=== PATIENT | female | born 1965 | race African-American/Black ===

== ENCOUNTER 2018-08-28 16:17 | Inpatient (IN) | payer MEDICAID, MEDICARE ==
[~2018-08-28] VITALS: Ht 160 cm; Wt 62.9 kg
[~2018-08-28 16:17] MED LIST: GABA-290 PO; INSULIN 70/30 SQ; LISI10TA5 PO; POLY10DR3 EACHEYE; SULF15DR26 EACHEYE; [UNRECOGNIZED DRUG - OTHER] PO
[2018-08-28] MEDS ORDERED: KETOROLAC 30MG/ML VIAL IV STA (17:53)
[2018-08-28] MEDS ORDERED: MORPHINE SULFATE 4 MG/ML CPJ (NOT FOR IM USE) IV STA (17:53)
[2018-08-28] MEDS ORDERED: SODIUM CHLORIDE 0.9% 1,000 ML IV ONE (17:53)
[2018-08-28] MEDS ORDERED: ONDANSETRON HCL 4MG/2ML INJ IV STA (17:53)
[2018-08-28] MEDS ORDERED: FAMOTIDINE 20MG/2ML VIAL IV ONE (18:00)
[2018-08-28 19:29] LABS: BASOPHILS % 0.6 % (0.0-2.0); EOSINOPHILS % 0.2 % (0.0-5.0); HEMOGLOBIN. 12.3 g/dL (12.0-16.0); LYMPHOCYTES % 29.7 % (20.0-50.0); MEAN CORPUSCULAR HEMOGLOBIN 26.5 pg (28.0-32.0); MEAN CORPUSCULAR VOLUME 79.8 fL (81.0-99.0); MEAN PLATELET VOLUME 8.8 fl (7.4-10.4); MONOCYTES % 3.9 % (2.0-8.0); NEUTROPHILS % 65.6 % (40.0-76.0); PLATELET 289 x1000/uL (130-400); RED BLOOD CELL COUNT 4.64 mill/uL (4.2-5.4); RED CELL DISTRIBUTION WIDTH 14.3 % (11.6-14.6)
[2018-08-28] MEDS ORDERED: LORAZEPAM 2MG/ML CPJ IV ONE (19:30)
[2018-08-28] MEDS ORDERED: MORPHINE SULFATE 4 MG/ML CPJ (NOT FOR IM USE) IV ONE (19:30)
[2018-08-28] MEDS ORDERED: ONDANSETRON HCL 4MG/2ML INJ IV ONE (19:30)
[2018-08-28 19:35] LABS: CHLORIDE 102 mEq/L (98-107); INR 1.1; PROTHROMBIN TIME 10.6 sec (9.1-11.1)
[2018-08-28 19:39] LABS: ETHANOL BLOOD < 10 mg/dL
[2018-08-28 19:44] LABS: CREATINE KINASE 72 IU/L (26-192)
[2018-08-28 19:45] LABS: HCG SCREEN NEGATIVE
[2018-08-28 19:46] LABS: CREATINE KINASE MB FRACTION < 1.0 ng/mL (0.5-3.6)
[2018-08-28] MEDS ORDERED: INSULIN REGULAR (HUMULIN R) 300UNITS/3ML SUBCUT ONE (20:45)
[2018-08-28] MEDS ORDERED: HYDRALAZINE 20MG/ML VIAL IV ONE (21:15)
[2018-08-29 00:10] LABS: CLARITY URINE CLOUDY (CLEAR); COLOR URINE YELLOW (YELLOW); KETONES URINE 2+ (NEGATIVE); LEUKOCYTE ESTERASE URINE NEGATIVE (NEGATIVE); NITRITE URINE NEGATIVE (NEGATIVE); OCCULT BLOOD URINE 1+ (NEGATIVE); PH URINE 8.5 (4.5-8.0); PROTEIN URINE 2+ (NEGATIVE); SPECIFIC GRAVITY URINE 1.017 (1.005-1.030); UROBILINOGEN URINE 0.2 E.U./dL (0.2-1.0)
[2018-08-29 00:29] LABS: *AMPHETAMINES SCREEN URINE NEGATIVE (NEGATIVE); *BARBITURATES SCREEN URINE NEGATIVE (NEGATIVE); *BENZODIAZEPINES SCREEN URINE NEGATIVE (NEGATIVE); *COCAINE SCREEN URINE NEGATIVE (NEGATIVE); METHADONE URINE SCREEN NEGATIVE (NEGATIVE); OPIATES URINE SCREEN PRESUMTIVE POSITIVE (NEGATIVE)
[2018-08-29 00:30] LABS: CANNABINOID URINE SCREEN PRESUMTIVE POSITIVE (NEGATIVE); PHENCYCLIDINE URINE SCREEN NEGATIVE (NEGATIVE)
[2018-08-29] MEDS ORDERED: HYDRALAZINE 20MG/ML VIAL IV ONE (00:30)
[2018-08-29] MEDS ORDERED: INSULIN REGULAR (HUMULIN R) 300UNITS/3ML SUBCUT SCH (02:15)
[2018-08-29] MEDS ORDERED: NA PHOS,M-B/NA PHOS,DI-BA ENEMA 118ML PR PRN (11:00)
[2018-08-29] MEDS ORDERED: ONDANSETRON HCL 4MG/2ML INJ IV PRN (11:00)
[2018-08-29] MEDS ORDERED: ACETAMINOPHEN 650MG SUPP PR PRN (11:00)
[2018-08-29] MEDS ORDERED: ACETAMINOPHEN 325MG TABLET PO PRN (11:00)
[2018-08-29] MEDS ORDERED: GUAIFENESIN 200MG/10ML SUGAR FREE UDC PO PRN (11:00)
[2018-08-29] MEDS ORDERED: SODIUM CHLORIDE 0.45% 1,000 ML IV SCH (11:00)
[2018-08-29] MEDS ORDERED: LORAZEPAM 0.5MG TABLET PO PRN (11:00)
[2018-08-29] MEDS ORDERED: IPRATROPIUM/ALBUTEROL 0.5-3(2.5)MG/3ML NEB INH PRN (11:00)
[2018-08-29] MEDS ORDERED: MAGNESIUM/ALUMINUM HYDROXIDE/SIMETHICONE 30ML UDC PO PRN (11:00)
[2018-08-29] MEDS ORDERED: DEXTROSE 50% WATER 50ML SYRINGE IV PRN (11:00)
[2018-08-29] MEDS ORDERED: DOCUSATE SODIUM 100MG CAPSULE PO PRN (11:00)
[2018-08-29] MEDS ORDERED: DIPHENHYDRAMINE 50MG/ML VIAL IV PRN (11:00)
[2018-08-29 11:03] VITALS: BP 169/91
[2018-08-29] MEDS ORDERED: LEVOFLOXACIN 500MG PREMIX 100 ML IV SCH (12:00)
[2018-08-29] MEDS: BLOOD SUGAR DIAGNOSTIC STRIP TEST SCH ×3 (12:20→21:53)
[2018-08-29] MEDS: PANTOPRAZOLE SODIUM 40 MG/VIAL IV SCH (14:07)
[2018-08-29] MEDS: ENOXAPARIN 40MG/0.4ML SYR SUBCUT SCH (14:09)
[2018-08-29] MEDS: HYDROCODONE/ACETAMINOPHEN 5/325MG TABLET PO PRN (14:10)
[2018-08-29] MEDS: INSULIN LISPRO 100 UNITS/ML SUBCUT SCH ×3 (14:18→21:00)
[2018-08-29 15:22] LABS: HEMATOCRIT 35.6 % (36.0-48.0); HEMOGLOBIN 11.8 g/dL (12.0-16.0); MEAN CORPUSCULAR HEMOGLOBIN 26.4 pg (28.0-32.0); MEAN CORPUSCULAR VOLUME 79.9 fL (81.0-99.0); PLATELET 261 x1000/uL (130-400); RED BLOOD CELL COUNT 4.45 mill/uL (4.2-5.4); RED CELL DISTRIBUTION WIDTH 13.7 % (11.6-14.6)
[2018-08-29 15:32] LABS: CHLORIDE 106 mEq/L (98-107)
[2018-08-29] MEDS: SODIUM CHLORIDE 0.45% 1,000 ML IV SCH (16:45)
[2018-08-29] MEDS: CLONIDINE 0.1MG TABLET PO PRN (17:42)
[2018-08-29 20:22] VITALS: BP 188/97
[2018-08-30] VITALS (7 sets, daily range): BP systolic 129–198; BP diastolic 63–103
[2018-08-30] MEDS: BLOOD SUGAR DIAGNOSTIC STRIP TEST SCH ×4 (06:44→20:18)
[2018-08-30 06:58] LABS: CHLORIDE 101 mEq/L (98-107)
[2018-08-30 07:07] LABS: BASOPHILS % 0.5 % (0.0-2.0); HEMOGLOBIN. 10.4 g/dL (12.0-16.0); LYMPHOCYTES % 28.5 % (20.0-50.0); MEAN CORPUSCULAR HEMOGLOBIN 26.2 pg (28.0-32.0); MEAN CORPUSCULAR VOLUME 80.5 fL (81.0-99.0); MEAN PLATELET VOLUME 8.7 fl (7.4-10.4); MONOCYTES % 7.6 % (2.0-8.0); NEUTROPHILS % 63.4 % (40.0-76.0); PLATELET 257 x1000/uL (130-400); RED BLOOD CELL COUNT 3.97 mill/uL (4.2-5.4); RED CELL DISTRIBUTION WIDTH 14.1 % (11.6-14.6)
[2018-08-30 07:20] LABS: LDL CHOLESTEROL 158 mg/dL (5-100)
[2018-08-30 07:21] LABS: T4 FREE 1.25 ng/dL (0.76-1.46)
[2018-08-30 07:22] LABS: HDL CHOLESTEROL 47 mg/dL (40-59)
[2018-08-30] MEDS ORDERED: AMLODIPINE 5MG TABLET PO SCH (09:00)
[2018-08-30] MEDS: ENOXAPARIN 40MG/0.4ML SYR SUBCUT SCH (09:52)
[2018-08-30] MEDS ORDERED: INFLUENZA VIRUS VACCINE(AFLURIA) 0.5ML SYR IM ONE (10:00)
[2018-08-30] MEDS: HYDROCODONE/ACETAMINOPHEN 5/325MG TABLET PO PRN ×2 (10:00→20:07)
[2018-08-30] MEDS: INSULIN LISPRO 100 UNITS/ML SUBCUT SCH ×4 (10:07→20:18)
[2018-08-30] MEDS: SODIUM CHLORIDE 0.45% 1,000 ML IV SCH (10:08)
[2018-08-30] MEDS: PANTOPRAZOLE SODIUM 40 MG/VIAL IV SCH (10:47)
[2018-08-30] MEDS ORDERED: MORPHINE SULFATE 4 MG/ML CPJ (NOT FOR IM USE) IV SCH (12:15)
[2018-08-30] MEDS: CLONIDINE 0.1MG TABLET PO PRN ×2 (12:31→20:07)
[2018-08-30] MEDS ORDERED: HYDRALAZINE 20MG/ML VIAL IV NR (16:30)
== END 2018-08-30 23:10 | disposition home or self-care (01) ==
LOC: ER 16:33 → 6WST 21:32 → EDBEDREQTM 21:35 → EDBEDREQ 21:35 → ENRESERV 08-29 08:10
PROVIDERS: ADMIT Internal Medicine; ATTEND Internal Medicine
DX: K80.20 Calculus of gallbladder without cholecystitis without obstruction (principal); E87.2 Acidosis; E11.65 Type 2 diabetes mellitus with hyperglycemia; E86.0 Dehydration; I10 Essential (primary) hypertension; F17.210 Nicotine dependence, cigarettes, uncomplicated; K44.9 Diaphragmatic hernia without obstruction or gangrene; I25.10 Atherosclerotic heart disease of native coronary artery without angina pectoris; Z88.0 Allergy status to penicillin; Z91.19 Patient's noncompliance with other medical treatment and regimen; Z98.891 History of uterine scar from previous surgery; Z89.432 Acquired absence of left foot
CPT/HCPCS: 36415; 71045; 74176; 76700; 80061; 80305; 80320; 82550; 82553; 82962; 83036; 83605; 83880; 84439; 84443; 84484; 84703; 85027; 93005; 93306; 93970; 96374; 96375; 99285; C9113; J0360; J1650; J1815; J1885; J2060; J2270; J2405; J3490; J7030; G0480

== ENCOUNTER 2018-12-04 13:46 | Emergency (ER) | payer MEDICARE ==
[~2018-12-04] VITALS: Ht 165.1 cm; Wt 67.0 kg
[2018-12-04 14:29] VITALS: BP 163/83
[2018-12-04] MEDS ORDERED: CIPROFLOXACIN 0.3% OPHTH SOLN 2.5ML LEFTEYE STA (14:37)
== END 2018-12-04 15:55 | disposition left against medical advice (07) ==
LOC: ER 13:46
DX: H10.9 Unspecified conjunctivitis (principal); Z91.410 Personal history of adult physical and sexual abuse
CPT/HCPCS: 99283

== ENCOUNTER 2019-01-23 10:39 | Inpatient (IN) | payer MEDICARE ==
[~2019-01-23] VITALS: Ht 160 cm; Wt 70.8 kg
[2019-01-23] MEDS ORDERED: SODIUM CHLORIDE 0.9% 1,000 ML IV ONE (10:59)
[2019-01-23 12:14] LABS: BASOPHILS % 0.7 % (0.0-2.0); EOSINOPHILS % 0.8 % (0.0-5.0); HEMATOCRIT. 36.7 % (36.0-48.0); HEMOGLOBIN. 12.2 g/dL (12.0-16.0); MEAN CORPUSCULAR HEMOGLOBIN 26.6 pg (28.0-32.0); MEAN PLATELET VOLUME 8.4 fl (7.4-10.4); MONOCYTES % 6.7 % (2.0-8.0); NEUTROPHILS % 53.8 % (40.0-76.0); PLATELET 321 x1000/uL (130-400); RED BLOOD CELL COUNT 4.58 mill/uL (4.2-5.4); RED CELL DISTRIBUTION WIDTH 13.5 % (11.6-14.6)
[2019-01-23 12:31] LABS: CHLORIDE 108 mEq/L (98-107)
[2019-01-23 12:32] LABS: PARTIAL THROMBOPLASTIN TIME 26.9 sec (23.4-31.0); PROTHROMBIN TIME 9.9 sec (9.6-11.0)
[2019-01-23] MEDS ORDERED: ONDANSETRON HCL 4MG/2ML INJ IV STA (13:28)
[2019-01-23] MEDS ORDERED: MORPHINE SULFATE 4 MG/ML CPJ (NOT FOR IM USE) IV STA (13:28)
[2019-01-23] MEDS ORDERED: ASPIRIN 325MG EC TABLET PO ONE (13:30)
[2019-01-23] MEDS ORDERED: IOHEXOL-350 100 ML BOTTLE ONE (15:56)
[2019-01-23] MEDS ORDERED: HYDRALAZINE 20MG/ML VIAL IV NR (16:23)
[2019-01-23] MEDS ORDERED: IPRATROPIUM/ALBUTEROL 0.5-3(2.5)MG/3ML NEB INH PRN (17:15)
[2019-01-23] MEDS ORDERED: ONDANSETRON HCL 4MG/2ML INJ IV PRN (17:15)
[2019-01-23] MEDS ORDERED: LORAZEPAM 0.5MG TABLET PO PRN (17:15)
[2019-01-23] MEDS ORDERED: DIPHENHYDRAMINE 50MG/ML VIAL IV PRN (17:15)
[2019-01-23] MEDS ORDERED: DEXTROSE 50% WATER 50ML SYRINGE IV PRN (17:15)
[2019-01-23] MEDS ORDERED: ACETAMINOPHEN 650MG SUPP PR PRN (17:15)
[2019-01-23] MEDS ORDERED: NA PHOS,M-B/NA PHOS,DI-BA ENEMA 118ML PR PRN (17:15)
[2019-01-23] MEDS ORDERED: GUAIFENESIN 200MG/10ML SUGAR FREE UDC PO PRN (17:15)
[2019-01-23] MEDS ORDERED: ACETAMINOPHEN 325MG TABLET PO PRN (17:15)
[2019-01-23] MEDS ORDERED: HYDROCODONE/ACETAMINOPHEN 5/325MG TABLET PO PRN (17:15)
[2019-01-23] MEDS ORDERED: DOCUSATE SODIUM 100MG CAPSULE PO PRN (17:15)
[2019-01-23] MEDS ORDERED: MAGNESIUM/ALUMINUM HYDROXIDE/SIMETHICONE 30ML UDC PO PRN (17:15)
[2019-01-23] MEDS ORDERED: PIPERACILLIN/TAZOBACTAM 2.25 G in DEXTROSE 5% WATER 50 ML IV SCH (17:15)
[2019-01-23] MEDS ORDERED: GABA800T97 MT (18:07)
[2019-01-23] MEDS: INSULIN LISPRO 100 UNITS/ML SUBCUT SCH ×2 (18:15→21:00)
[2019-01-23 18:20] VITALS: BP 176/96
[2019-01-23] MEDS: AMLODIPINE 5MG TABLET PO SCH (18:42)
[2019-01-23] MEDS: ENOXAPARIN 40MG/0.4ML SYR SUBCUT SCH (18:43)
[2019-01-23] MEDS: MORPHINE SULFATE 2 MG/ML CPJ (NOT FOR IM USE) IV PRN (19:10)
[2019-01-23] MEDS ORDERED: LEVOFLOXACIN 500MG PREMIX 100 ML IV NR (19:30)
[2019-01-23 20:00] VITALS: BP 162/76
[2019-01-23] MEDS: SODIUM CHLORIDE 0.45% 1,000 ML IV SCH (20:16)
[2019-01-23] MEDS: CLONIDINE 0.1MG TABLET PO PRN (20:35)
[2019-01-23] MEDS: CIPROFLOXACIN 0.3% OPHTH SOLN 2.5ML LEFTEYE SCH (20:35)
[2019-01-23] MEDS ORDERED: ATORVASTATIN CALCIUM 10MG TABLET PO SCH (21:00)
[2019-01-23] MEDS: GABAPENTIN 100MG CAPSULE PO SCH (21:59)
[2019-01-23] MEDS: BLOOD SUGAR DIAGNOSTIC STRIP TEST SCH (21:59)
[2019-01-23] MEDS: METRONIDAZOLE 500 MG PREMIX 100 ML IV SCH (21:59)
[2019-01-23] MEDS: SULFACETAMIDE SODIUM 10% OPHTH DROPS 15ML LEFTEYE SCH (22:01)
[2019-01-23] MEDS ORDERED: METF-815 PO (22:47)
[2019-01-23] MEDS ORDERED: LISI-604 PO (22:48)
[2019-01-23] MEDS ORDERED: SIMV5TAB58 MT (22:49)
[2019-01-24] VITALS: BP 133/59
[2019-01-24] MEDS: MORPHINE SULFATE 2 MG/ML CPJ (NOT FOR IM USE) IV PRN ×4 (01:11→20:17)
[2019-01-24 04:00] VITALS: BP 141/73
[2019-01-24 04:00] LABS: CLARITY URINE CLEAR (CLEAR); COLOR URINE YELLOW (YELLOW); KETONES URINE TRACE (NEGATIVE); LEUKOCYTE ESTERASE URINE NEGATIVE (NEGATIVE); NITRITE URINE NEGATIVE (NEGATIVE); OCCULT BLOOD URINE NEGATIVE (NEGATIVE); PROTEIN URINE NEGATIVE (NEGATIVE); SPECIFIC GRAVITY URINE 1.036 (1.005-1.030); UROBILINOGEN URINE 0.2 E.U./dL (0.2-1.0)
[2019-01-24] MEDS: METRONIDAZOLE 500 MG PREMIX 100 ML IV SCH ×2 (04:11→15:37)
[2019-01-24 04:34] LABS: *AMPHETAMINES SCREEN URINE NEGATIVE (NEGATIVE); *BARBITURATES SCREEN URINE NEGATIVE (NEGATIVE); *BENZODIAZEPINES SCREEN URINE NEGATIVE (NEGATIVE); *COCAINE SCREEN URINE NEGATIVE (NEGATIVE)
[2019-01-24 04:35] LABS: CANNABINOID URINE SCREEN PRESUMTIVE POSITIVE (NEGATIVE); METHADONE URINE SCREEN NEGATIVE (NEGATIVE); OPIATES URINE SCREEN PRESUMTIVE POSITIVE (NEGATIVE); PHENCYCLIDINE URINE SCREEN NEGATIVE (NEGATIVE)
[2019-01-24] MEDS: GABAPENTIN 100MG CAPSULE PO SCH ×2 (06:08→15:38)
[2019-01-24] MEDS: BLOOD SUGAR DIAGNOSTIC STRIP TEST SCH ×3 (06:08→17:20)
[2019-01-24] MEDS: INSULIN LISPRO 100 UNITS/ML SUBCUT SCH ×3 (07:50→17:50)
[2019-01-24 08:00] VITALS: BP 146/77
[2019-01-24] MEDS: AMLODIPINE 5MG TABLET PO SCH (08:27)
[2019-01-24] MEDS: SULFACETAMIDE SODIUM 10% OPHTH DROPS 15ML LEFTEYE SCH ×4 (08:28→21:06)
[2019-01-24] MEDS: CIPROFLOXACIN 0.3% OPHTH SOLN 2.5ML LEFTEYE SCH ×4 (08:28→21:06)
[2019-01-24] MEDS ORDERED: ASPIRIN 81MG EC TABLET PO SCH (09:00)
[2019-01-24 09:30] LABS: BASOPHILS % 0.6 % (0.0-2.0); EOSINOPHILS % 1.1 % (0.0-5.0); HEMOGLOBIN. 10.3 g/dL (12.0-16.0); LYMPHOCYTES % 48.1 % (20.0-50.0); MEAN CORPUSCULAR HEMOGLOBIN 26.5 pg (28.0-32.0); MEAN CORPUSCULAR VOLUME 79.3 fL (81.0-99.0); MEAN PLATELET VOLUME 8.2 fl (7.4-10.4); MONOCYTES % 8.3 % (2.0-8.0); NEUTROPHILS % 41.9 % (40.0-76.0); PLATELET 256 x1000/uL (130-400); RED CELL DISTRIBUTION WIDTH 13.5 % (11.6-14.6)
[2019-01-24 09:41] LABS: CHLORIDE 106 mEq/L (98-107)
[2019-01-24 09:48] LABS: LDL CHOLESTEROL 176 mg/dL (5-100)
[2019-01-24 09:49] LABS: HDL CHOLESTEROL 41 mg/dL (40-59)
[2019-01-24 09:50] LABS: T4 FREE 1.34 ng/dL (0.76-1.46)
[2019-01-24] MEDS: SODIUM CHLORIDE 0.45% 1,000 ML IV SCH (14:15)
[2019-01-24] MEDS: CLONIDINE 0.1MG TABLET PO PRN (15:39)
[2019-01-24 16:00] VITALS: BP 170/99
[2019-01-24] MEDS: ENOXAPARIN 40MG/0.4ML SYR SUBCUT SCH (18:36)
[2019-01-24] MEDS ORDERED: LEVOFLOXACIN 250MG PREMIX 50 ML IV SCH (20:00)
[2019-01-24 20:21] VITALS: BP 142/89
[2019-01-24] MEDS ORDERED: ATORVASTATIN CALCIUM 40MG TABLET PO SCH ×2 (21:00)
== END 2019-01-24 21:37 | DRG 45 ==
LOC: ER 10:39 → SUPCPDRO 14:11 → 6WST 14:59 → EDBEDREQ 15:01 → EDBEDREQTM 15:01 → ENRESERV 15:20
PROVIDERS: ADMIT Internal Medicine; ATTEND Internal Medicine
PROC: 02HV33Z Insertion of Infusion Device into Superior Vena Cava, Percutaneous Approach (ICD-10-PCS; principal; 2019-01-23)
PROC: B5181ZA Fluoroscopy of Superior Vena Cava using Low Osmolar Contrast, Guidance (ICD-10-PCS; 2019-01-23)
PROC: B548ZZA Ultrasonography of Superior Vena Cava, Guidance (ICD-10-PCS; 2019-01-23)
DX: I63.9 Cerebral infarction, unspecified (principal); K85.90 Acute pancreatitis without necrosis or infection, unspecified; D68.59 Other primary thrombophilia; E11.22 Type 2 diabetes mellitus with diabetic chronic kidney disease; E11.51 Type 2 diabetes mellitus with diabetic peripheral angiopathy without gangrene; E11.40 Type 2 diabetes mellitus with diabetic neuropathy, unspecified; E11.65 Type 2 diabetes mellitus with hyperglycemia; G81.94 Hemiplegia, unspecified affecting left nondominant side; K86.1 Other chronic pancreatitis; E78.5 Hyperlipidemia, unspecified; F17.210 Nicotine dependence, cigarettes, uncomplicated; N18.9 Chronic kidney disease, unspecified; I12.9 Hypertensive chronic kidney disease with stage 1 through stage 4 chronic kidney disease, or unspecified chronic kidney disease; E86.0 Dehydration; H10.9 Unspecified conjunctivitis; F12.90 Cannabis use, unspecified, uncomplicated; G31.9 Degenerative disease of nervous system, unspecified; Z88.0 Allergy status to penicillin; Z98.891 History of uterine scar from previous surgery; Z79.4 Long term (current) use of insulin; Z79.899 Other long term (current) drug therapy; Z89.422 Acquired absence of other left toe(s)
CPT/HCPCS: 36415; 70496; 70498; 70551; 71045; 76700; 76937; 80061; 80305; 82962; 83036; 83880; 84439; 84443; 84484; 92610; 93005; 93306; 93970; 96365; 96375; 97162; 97166; 99285; C1725; J0360; J1650; J1956; J2270; J2405; J3490; J7030; Q9967

== ENCOUNTER 2019-02-12 14:52 | Emergency (ER) | payer MEDICARE ==
[~2019-02-12] VITALS: Ht 162.6 cm; Wt 66.0 kg
[~2019-02-12 14:52] MED LIST changes: +GABA800T97 MT; +LISI-604 PO; +METF-815 PO; +SIMV5TAB58 MT
[2019-02-12 18:22] LABS: BASOPHILS % 0.6 % (0.0-2.0); EOSINOPHILS % 0.8 % (0.0-5.0); HEMATOCRIT. 36.1 % (36.0-48.0); LYMPHOCYTES % 44.5 % (20.0-50.0); MEAN CORPUSCULAR HEMOGLOBIN 26.3 pg (28.0-32.0); MEAN CORPUSCULAR VOLUME 79.3 fL (81.0-99.0); MEAN PLATELET VOLUME 8.4 fl (7.4-10.4); MONOCYTES % 7.3 % (2.0-8.0); NEUTROPHILS % 46.8 % (40.0-76.0); PLATELET 267 x1000/uL (130-400); RED BLOOD CELL COUNT 4.55 mill/uL (4.2-5.4); RED CELL DISTRIBUTION WIDTH 13.5 % (11.6-14.6)
[2019-02-12 18:26] LABS: CHLORIDE 107 mEq/L (98-107)
[2019-02-12 18:27] LABS: PROTHROMBIN TIME 10.4 sec (9.6-11.0)
[2019-02-12] MEDS ORDERED: KETOROLAC 15MG/ML VIAL IV ONE (18:30)
[2019-02-12] MEDS ORDERED: ASPIRIN 81MG TABLET PO ONE (19:00)
[2019-02-12] MEDS ORDERED: FUROSEMIDE 20MG/2ML VIAL IVP ONE (19:00)
[2019-02-12] MEDS ORDERED: NITROGLYCERIN 0.4MG TABLET SL SL ONE (19:00)
[2019-02-12] MEDS ORDERED: INSULIN REGULAR (HUMULIN R) 300UNITS/3ML IV ONE (19:30)
[2019-02-12] MEDS ORDERED: DEXTROSE 50% WATER 50ML SYRINGE IV ONE (19:30)
[2019-02-12] MEDS ORDERED: GABAPENTIN 400MG CAPSULE PO ONE (21:45)
[2019-02-12 21:56] VITALS: BP 127/76
== END 2019-02-12 22:07 | disposition short-term general hospital (02) ==
LOC: ER 14:55 → CANBEDREQ 23:16
DX: R07.89 Other chest pain (principal); N17.9 Acute kidney failure, unspecified; R00.0 Tachycardia, unspecified; I10 Essential (primary) hypertension; E11.9 Type 2 diabetes mellitus without complications; Z79.4 Long term (current) use of insulin; F17.210 Nicotine dependence, cigarettes, uncomplicated; Z88.0 Allergy status to penicillin; Z79.899 Other long term (current) drug therapy
CPT/HCPCS: 36415; 71045; 80053; 82962; 83880; 84484; 85025; 85610; 93005; 96374; 96375; 99285; J1815; J1885; J1940; Z7610

== ENCOUNTER 2019-03-18 18:49 | Emergency (ER) | payer MEDICARE ==
[~2019-03-18] VITALS: Ht 167.6 cm; Wt 62.0 kg
[2019-03-18] MEDS ORDERED: ONDANSETRON HCL 4MG/2ML INJ IV STA (19:47)
[2019-03-18] MEDS ORDERED: SODIUM CHLORIDE 0.9% 1000ML BAG (SEPSIS BOLUS) IV ONE (20:00)
[2019-03-18 20:12] LABS: BG BASE EXCESS -6.8 mmol/L (-2.0-2.0); BG CARBOXYHEMOGLOBIN 0.3 % (0.5-1.5); BG DEOXYHEMOGLOBIN 4.2 % (0.0-5.0); BG FRACTION INSPIRED OXYGEN 21; BG HCO3 ACT 17.9 mmol/L (22.0-26.0); BG METHEMOGLOBIN 0.5 % (0.0-1.5); BG OXYGEN SATURATION 95.8 % (92.0-98.5); BG PH 7.353 (7.350-7.450); BG PO2 88.5 mmHg (75.0-100.0); BG SAMPLE SITE RIGHT BRACHIAL; BG TOTAL HEMOGLOBIN 10.1 g/dL (12.0-18.0); BG VENT MODE ROOM AIR
[2019-03-18 20:54] LABS: CLARITY URINE CLEAR (CLEAR); COLOR URINE YELLOW (YELLOW); KETONES URINE NEGATIVE (NEGATIVE); LEUKOCYTE ESTERASE URINE NEGATIVE (NEGATIVE); NITRITE URINE NEGATIVE (NEGATIVE); OCCULT BLOOD URINE NEGATIVE (NEGATIVE); PROTEIN URINE NEGATIVE (NEGATIVE); SPECIFIC GRAVITY URINE 1.012 (1.005-1.030)
[2019-03-18 21:09] LABS: BASOPHILS % 0.5 % (0.0-2.0); CHLORIDE 110 mEq/L (98-107); HEMATOCRIT. 28.9 % (36.0-48.0); HEMOGLOBIN. 9.5 g/dL (12.0-16.0); LYMPHOCYTES % 30.9 % (20.0-50.0); MEAN CORPUSCULAR HEMOGLOBIN 26.1 pg (28.0-32.0); MEAN CORPUSCULAR VOLUME 79.6 fL (81.0-99.0); MEAN PLATELET VOLUME 8.2 fl (7.4-10.4); MONOCYTES % 8.9 % (2.0-8.0); NEUTROPHILS % 58.7 % (40.0-76.0); PLATELET 271 x1000/uL (130-400); PROTHROMBIN TIME 10.7 sec (9.6-11.0); RED BLOOD CELL COUNT 3.63 mill/uL (4.2-5.4); RED CELL DISTRIBUTION WIDTH 13.4 % (11.6-14.6)
[2019-03-18 21:13] LABS: ETHANOL BLOOD < 10 mg/dL
[2019-03-18 21:15] LABS: *AMPHETAMINES SCREEN URINE NEGATIVE (NEGATIVE); *BARBITURATES SCREEN URINE NEGATIVE (NEGATIVE); *BENZODIAZEPINES SCREEN URINE NEGATIVE (NEGATIVE); *COCAINE SCREEN URINE NEGATIVE (NEGATIVE); METHADONE URINE SCREEN NEGATIVE (NEGATIVE); OPIATES URINE SCREEN NEGATIVE (NEGATIVE)
[2019-03-18 21:16] LABS: CANNABINOID URINE SCREEN PRESUMTIVE POSITIVE (NEGATIVE); PHENCYCLIDINE URINE SCREEN NEGATIVE (NEGATIVE)
[2019-03-18] MEDS ORDERED: SODIUM POLYSTYRENE SULFONATE 15 G/60 ML BOT PO ONE (21:45)
[2019-03-19] MEDS ORDERED: ONDANSETRON HCL 4MG/2ML INJ IV ONE (02:15)
[2019-03-19] MEDS ORDERED: MORPHINE SULFATE 4 MG/ML CPJ (NOT FOR IM USE) IV ONE (02:15)
[2019-03-19 02:22] VITALS: BP 132/76
== END 2019-03-19 02:22 | disposition short-term general hospital (02) ==
LOC: ER 18:49 → EDBEDREQTM 22:54 → EDBEDREQ 22:54 → EDBEDREQSVC 22:54 → ER 03-19 02:22 → CANBEDREQ 03-19 05:36
DX: N17.9 Acute kidney failure, unspecified (principal); E86.0 Dehydration; E11.65 Type 2 diabetes mellitus with hyperglycemia; I10 Essential (primary) hypertension; F11.10 Opioid abuse, uncomplicated; Z89.422 Acquired absence of other left toe(s); Z79.4 Long term (current) use of insulin; Z86.73 Personal history of transient ischemic attack (TIA), and cerebral infarction without residual deficits; Z79.899 Other long term (current) drug therapy
CPT/HCPCS: 36415; 36600; 70450; 71045; 80053; 80305; 80320; 81003; 82375; 82805; 82962; 83605; 83690; 84145; 84484; 85025; 85610; 87040; 87086; 93005; 96361; 96374; 96375; 96376; 99284; J2270; J2405; J7030; G0480

== ENCOUNTER 2019-04-25 13:03 | Emergency (ER) | payer MEDICARE ==
[~2019-04-25] VITALS: Ht 167.6 cm; Wt 61.0 kg
[2019-04-25 16:00] VITALS: BP 155/90
== END 2019-04-25 16:15 | disposition left against medical advice (07) ==
LOC: ER 13:03
DX: R53.1 Weakness (principal); I10 Essential (primary) hypertension; E11.9 Type 2 diabetes mellitus without complications; F17.200 Nicotine dependence, unspecified, uncomplicated; Z86.73 Personal history of transient ischemic attack (TIA), and cerebral infarction without residual deficits; Z79.4 Long term (current) use of insulin; Z79.899 Other long term (current) drug therapy; Z98.890 Other specified postprocedural states; Z88.0 Allergy status to penicillin
CPT/HCPCS: 99283

== ENCOUNTER 2019-06-02 17:02 | Inpatient (IN) | payer MEDICAID, MEDICARE ==
[~2019-06-02] VITALS: Ht 160 cm; Wt 67.1 kg
[2019-06-02] MEDS ORDERED: ONDANSETRON HCL 4MG/2ML INJ IV ONE ×2 (19:00→20:45)
[2019-06-02] MEDS ORDERED: MORPHINE SULFATE 4 MG/ML CPJ (NOT FOR IM USE) IV ONE ×2 (19:00→22:15)
[2019-06-02 19:30] LABS: PROTHROMBIN TIME 10.5 sec (9.6-11.0)
[2019-06-02 19:32] LABS: CHLORIDE 107 mEq/L (98-107)
[2019-06-02 19:33] LABS: BASOPHILS % 0.6 % (0.0-2.0); EOSINOPHILS % 0.5 % (0.0-5.0); HEMATOCRIT. 34.3 % (36.0-48.0); HEMOGLOBIN. 11.3 g/dL (12.0-16.0); MEAN CORPUSCULAR HEMOGLOBIN 26.2 pg (28.0-32.0); MEAN CORPUSCULAR VOLUME 79.6 fL (81.0-99.0); MEAN PLATELET VOLUME 8.7 fl (7.4-10.4); MONOCYTES % 4.6 % (2.0-8.0); NEUTROPHILS % 68.3 % (40.0-76.0); PLATELET 305 x1000/uL (130-400); RED BLOOD CELL COUNT 4.31 mill/uL (4.2-5.4); RED CELL DISTRIBUTION WIDTH 13.9 % (11.6-14.6)
[2019-06-02] MEDS ORDERED: SODIUM CHLORIDE 0.9% 1,000 ML IV ONE ×2 (20:30→21:45)
[2019-06-02] MEDS ORDERED: METOCLOPRAMIDE HCL 10MG/2ML VIAL IV ONE (20:45)
[2019-06-02] MEDS ORDERED: HYDRALAZINE 20MG/ML VIAL IV ONE (21:45)
[2019-06-02 23:10] LABS: CLARITY URINE CLEAR (CLEAR); COLOR URINE YELLOW (YELLOW); KETONES URINE NEGATIVE (NEGATIVE); LEUKOCYTE ESTERASE URINE NEGATIVE (NEGATIVE); NITRITE URINE NEGATIVE (NEGATIVE); OCCULT BLOOD URINE 1+ (NEGATIVE); PH URINE 7.5 (4.5-8.0); PROTEIN URINE 3+ (NEGATIVE); SPECIFIC GRAVITY URINE 1.027 (1.005-1.030)
[2019-06-02] MEDS ORDERED: HYDR-459 MT (23:24)
[2019-06-03] VITALS (8 sets, daily range): BP systolic 149–203; BP diastolic 77–99
[2019-06-03] MEDS ORDERED: DEXTROSE 50% WATER 50ML SYRINGE IV PRN (03:15)
[2019-06-03] MEDS ORDERED: DEXT 5%/0.9% NACL KCL 20MEQ/L 1,000 ML IV SCH (05:00)
[2019-06-03] MEDS: ONDANSETRON HCL 4MG/2ML INJ IV PRN ×3 (06:48→19:56)
[2019-06-03] MEDS: LISINOPRIL 40MG TABLET PO SCH ×2 (06:49→08:47)
[2019-06-03] MEDS: BLOOD SUGAR DIAGNOSTIC STRIP TEST SCH ×5 (07:02→21:19)
[2019-06-03] MEDS: INSULIN LISPRO 100 UNITS/ML SUBCUT SCH ×4 (07:11→21:20)
[2019-06-03] MEDS: FAMOTIDINE 20MG TABLET PO SCH ×2 (08:47→21:19)
[2019-06-03] MEDS: ENOXAPARIN 40MG/0.4ML SYR SUBCUT SCH (08:47)
[2019-06-03] MEDS: INS NPH/REG HM 70-30 100 UNITS/ML 10ML VIAL (HUMULIN 70-30) SUBCUT SCH (08:49)
[2019-06-03] MEDS: DEXT 5%/0.45% NACL KCL 20MEQ/L 1,000 ML IV SCH ×3 (09:57→22:36)
[2019-06-03 12:07] LABS: PHENCYCLIDINE URINE SCREEN NEGATIVE (NEGATIVE)
[2019-06-03 12:08] LABS: CANNABINOID URINE SCREEN PRESUMTIVE POSITIVE (NEGATIVE); OPIATES URINE SCREEN PRESUMTIVE POSITIVE (NEGATIVE)
[2019-06-03 12:10] LABS: *AMPHETAMINES SCREEN URINE NEGATIVE (NEGATIVE)
[2019-06-03 12:11] LABS: *COCAINE SCREEN URINE NEGATIVE (NEGATIVE); METHADONE URINE SCREEN NEGATIVE (NEGATIVE)
[2019-06-03 12:14] LABS: *BARBITURATES SCREEN URINE NEGATIVE (NEGATIVE); *BENZODIAZEPINES SCREEN URINE NEGATIVE (NEGATIVE)
[2019-06-03] MEDS: MORPHINE SULFATE 2 MG/ML CPJ (NOT FOR IM USE) IV PRN ×3 (12:58→23:39)
[2019-06-03] MEDS: PROMETHAZINE/DEXTROMETHORPHAN 6.25-15MG/5ML BOTTLE 120ML PO PRN ×2 (15:05→22:31)
[2019-06-03 16:26] LABS: BASOPHILS % 0.4 % (0.0-2.0); HEMATOCRIT. 28.9 % (36.0-48.0); HEMOGLOBIN. 9.4 g/dL (12.0-16.0); LYMPHOCYTES % 13.9 % (20.0-50.0); MEAN CORPUSCULAR HEMOGLOBIN 26.2 pg (28.0-32.0); MEAN CORPUSCULAR VOLUME 80.1 fL (81.0-99.0); NEUTROPHILS % 79.7 % (40.0-76.0); PLATELET 257 x1000/uL (130-400); RED CELL DISTRIBUTION WIDTH 14.1 % (11.6-14.6)
[2019-06-04] VITALS (9 sets, daily range): BP systolic 146–201; BP diastolic 73–99
[2019-06-04] MEDS: DEXT 5%/0.45% NACL KCL 20MEQ/L 1,000 ML IV SCH ×4 (01:45→21:14)
[2019-06-04] MEDS: ONDANSETRON HCL 4MG/2ML INJ IV PRN (04:13)
[2019-06-04] MEDS: MORPHINE SULFATE 2 MG/ML CPJ (NOT FOR IM USE) IV PRN ×3 (04:13→22:52)
[2019-06-04] MEDS: PROMETHAZINE/DEXTROMETHORPHAN 6.25-15MG/5ML BOTTLE 120ML PO PRN ×2 (06:09→20:30)
[2019-06-04] MEDS: INSULIN LISPRO 100 UNITS/ML SUBCUT SCH ×4 (06:18→21:00)
[2019-06-04 07:19] LABS: CHLORIDE 107 mEq/L (98-107)
[2019-06-04 07:26] LABS: PHOSPHORUS 2.6 mg/dL (2.5-4.9)
[2019-06-04] MEDS: BLOOD SUGAR DIAGNOSTIC STRIP TEST SCH ×4 (07:30→21:14)
[2019-06-04] MEDS: FAMOTIDINE 20MG TABLET PO SCH ×2 (08:41→21:11)
[2019-06-04] MEDS: LISINOPRIL 40MG TABLET PO SCH (08:41)
[2019-06-04] MEDS: ENOXAPARIN 40MG/0.4ML SYR SUBCUT SCH (08:42)
[2019-06-04] MEDS: INS NPH/REG HM 70-30 100 UNITS/ML 10ML VIAL (HUMULIN 70-30) SUBCUT SCH (09:00)
[2019-06-04 11:56] LABS: BASOPHILS % 0.2 % (0.0-2.0); HEMATOCRIT. 30.3 % (36.0-48.0); HEMOGLOBIN. 10.1 g/dL (12.0-16.0); LYMPHOCYTES % 15.9 % (20.0-50.0); MEAN CORPUSCULAR HEMOGLOBIN 26.5 pg (28.0-32.0); MEAN CORPUSCULAR VOLUME 79.3 fL (81.0-99.0); MEAN PLATELET VOLUME 8.5 fl (7.4-10.4); MONOCYTES % 4.5 % (2.0-8.0); NEUTROPHILS % 79.4 % (40.0-76.0); PLATELET 260 x1000/uL (130-400); RED BLOOD CELL COUNT 3.82 mill/uL (4.2-5.4); RED CELL DISTRIBUTION WIDTH 14.1 % (11.6-14.6)
[2019-06-04] MEDS ORDERED: MAGNESIUM 4 G PREMIX 100 ML IV NR (14:00)
[2019-06-04 14:58] LABS: BASOPHILS % 0.5 % (0.0-2.0); EOSINOPHILS % 0.2 % (0.0-5.0); HEMATOCRIT. 31.2 % (36.0-48.0); HEMOGLOBIN. 10.3 g/dL (12.0-16.0); LYMPHOCYTES % 22.6 % (20.0-50.0); MEAN CORPUSCULAR HEMOGLOBIN 26.3 pg (28.0-32.0); MEAN CORPUSCULAR VOLUME 79.8 fL (81.0-99.0); MEAN PLATELET VOLUME 8.5 fl (7.4-10.4); MONOCYTES % 5.4 % (2.0-8.0); NEUTROPHILS % 71.3 % (40.0-76.0); PLATELET 248 x1000/uL (130-400); RED BLOOD CELL COUNT 3.91 mill/uL (4.2-5.4); RED CELL DISTRIBUTION WIDTH 13.6 % (11.6-14.6)
[2019-06-04 15:05] LABS: CHLORIDE 109 mEq/L (98-107)
[2019-06-04] MEDS ORDERED: SODIUM CHLORIDE 0.45% 1,000 ML IV SCH (16:15)
[2019-06-04] MEDS ORDERED: DILTIAZEM HCL 5MG/ML 5ML VIAL IV ONE ×2 (16:15→17:00)
[2019-06-04] MEDS: HYDRALAZINE 20MG/ML VIAL IV PRN ×2 (17:41→23:48)
[2019-06-04] MEDS: METHYLPREDNISOLONE SOD SUCC 40 MG/ML VIAL IV SCH (17:52)
[2019-06-04 18:22] LABS: CHLORIDE 108 mEq/L (98-107)
[2019-06-04] MEDS: DILTIAZEM HCL 30MG TABLET PO SCH (21:14)
[2019-06-04] MEDS: IPRATROPIUM/ALBUTEROL 0.5-3(2.5)MG/3ML NEB HHN SCH (21:19)
[2019-06-05] VITALS: BP 193/89
[2019-06-05] MEDS: IPRATROPIUM/ALBUTEROL 0.5-3(2.5)MG/3ML NEB HHN SCH ×4 (00:59→20:04)
[2019-06-05] MEDS: PROMETHAZINE/DEXTROMETHORPHAN 6.25-15MG/5ML BOTTLE 120ML PO PRN ×4 (01:14→18:33)
[2019-06-05] MEDS: DEXT 5%/0.45% NACL KCL 20MEQ/L 1,000 ML IV SCH ×4 (02:17→22:10)
[2019-06-05 04:00] VITALS: BP 160/86
[2019-06-05] MEDS: ONDANSETRON HCL 4MG/2ML INJ IV PRN ×2 (05:53→11:47)
[2019-06-05] MEDS: METHYLPREDNISOLONE SOD SUCC 40 MG/ML VIAL IV SCH ×2 (05:53→17:10)
[2019-06-05] MEDS: BLOOD SUGAR DIAGNOSTIC STRIP TEST SCH ×4 (05:53→21:00)
[2019-06-05] MEDS: DILTIAZEM HCL 30MG TABLET PO SCH ×3 (05:53→22:11)
[2019-06-05 06:14] LABS: HEMATOCRIT 30.7 % (36.0-48.0); HEMOGLOBIN 10.2 g/dL (12.0-16.0); MEAN CORPUSCULAR HEMOGLOBIN 26.7 pg (28.0-32.0); MEAN CORPUSCULAR VOLUME 80.2 fL (81.0-99.0); PLATELET 246 x1000/uL (130-400); RED BLOOD CELL COUNT 3.82 mill/uL (4.2-5.4); RED CELL DISTRIBUTION WIDTH 13.7 % (11.6-14.6)
[2019-06-05 06:34] LABS: CHLORIDE 105 mEq/L (98-107)
[2019-06-05 06:41] LABS: LDL CHOLESTEROL 144 mg/dL (5-100)
[2019-06-05 06:42] LABS: HEPATITIS B SURFACE ANTIGEN NEGATIVE
[2019-06-05 06:43] LABS: HDL CHOLESTEROL 63 mg/dL (40-59); T4 FREE 1.24 ng/dL (0.76-1.46)
[2019-06-05 07:11] LABS: HEPATITIS A AB IGM NEGATIVE (NEGATIVE)
[2019-06-05] MEDS: INSULIN LISPRO 100 UNITS/ML SUBCUT SCH ×4 (07:17→22:12)
[2019-06-05 08:00] VITALS: BP 139/91
[2019-06-05] MEDS: FAMOTIDINE 20MG TABLET PO SCH ×2 (08:05→20:44)
[2019-06-05] MEDS: ENOXAPARIN 40MG/0.4ML SYR SUBCUT SCH (08:06)
[2019-06-05] MEDS: LISINOPRIL 40MG TABLET PO SCH (08:09)
[2019-06-05] MEDS: MORPHINE SULFATE 2 MG/ML CPJ (NOT FOR IM USE) IV PRN ×4 (08:09→23:31)
[2019-06-05] MEDS ORDERED: SODIUM CHLORIDE 0.9% 250 ML IV ONE (11:00)
[2019-06-05 12:00] VITALS: BP 173/83
[2019-06-05] MEDS: METOCLOPRAMIDE HCL 10MG/2ML VIAL IV SCH ×3 (13:00→23:30)
[2019-06-05] MEDS ORDERED: INSULIN GLARGINE UD 100 UNITS/ML SYR SUBCUT NR (13:00)
[2019-06-05 16:00] VITALS: BP 179/86
[2019-06-05] MEDS ORDERED: ALBU90AE INH (16:51)
[2019-06-05] MEDS ORDERED: FAMO-135 MT (16:51)
[2019-06-05] MEDS ORDERED: DILT30TA38 MT (16:51)
[2019-06-05] MEDS ORDERED: P20 MT (16:51)
[2019-06-05] MEDS ORDERED: LEVO500T2 MT (16:51)
[2019-06-05] MEDS ORDERED: METO5TAB86 MT (16:58)
[2019-06-05] MEDS ORDERED: ONDA4TAB5 MT (16:58)
[2019-06-05] MEDS ORDERED: INSULIN LISPRO 100 UNITS/ML SUBCUT NR (18:21)
[2019-06-05] MEDS: LEVOFLOXACIN 500MG PREMIX 100 ML IV SCH (18:30)
[2019-06-05 20:00] VITALS: BP 188/92
[2019-06-05] MEDS: HYDRALAZINE 20MG/ML VIAL IV PRN (21:04)
[2019-06-06] VITALS (8 sets, daily range): BP systolic 135–165; BP diastolic 55–72
[2019-06-06] MEDS: PROMETHAZINE/DEXTROMETHORPHAN 6.25-15MG/5ML BOTTLE 120ML PO PRN ×2 (01:08→07:09)
[2019-06-06] MEDS: IPRATROPIUM/ALBUTEROL 0.5-3(2.5)MG/3ML NEB HHN SCH ×4 (01:40→20:50)
[2019-06-06] MEDS: METHYLPREDNISOLONE SOD SUCC 40 MG/ML VIAL IV SCH (04:59)
[2019-06-06] MEDS: DEXT 5%/0.45% NACL KCL 20MEQ/L 1,000 ML IV SCH (05:00)
[2019-06-06] MEDS: DILTIAZEM HCL 30MG TABLET PO SCH ×3 (05:01→21:51)
[2019-06-06] MEDS: METOCLOPRAMIDE HCL 10MG/2ML VIAL IV SCH ×3 (05:01→18:05)
[2019-06-06] MEDS: BLOOD SUGAR DIAGNOSTIC STRIP TEST SCH ×4 (05:46→21:35)
[2019-06-06] MEDS: INSULIN LISPRO 100 UNITS/ML SUBCUT SCH ×4 (06:21→21:00)
[2019-06-06] MEDS: FAMOTIDINE 20MG TABLET PO SCH (09:52)
[2019-06-06] MEDS: LISINOPRIL 40MG TABLET PO SCH (09:52)
[2019-06-06] MEDS: ENOXAPARIN 40MG/0.4ML SYR SUBCUT SCH (09:52)
[2019-06-06] MEDS ORDERED: DEXT 5%/0.9% NACL 1,000 ML IV SCH (12:15)
[2019-06-06] MEDS ORDERED: INSULIN LISPRO 100 UNITS/ML SUBCUT SCH (12:15)
[2019-06-06] MEDS: ONDANSETRON HCL 4MG/2ML INJ IV PRN (12:56)
[2019-06-06] MEDS ORDERED: PANTOPRAZOLE 40MG DR TABLET PO SCH (13:00)
[2019-06-06] MEDS: METRONIDAZOLE 500MG TABLET PO SCH ×2 (13:42→21:51)
[2019-06-06] MEDS: MORPHINE SULFATE 2 MG/ML CPJ (NOT FOR IM USE) IV PRN ×2 (13:44→21:31)
[2019-06-06] MEDS: LEVOFLOXACIN 500MG PREMIX 100 ML IV SCH (18:05)
[2019-06-06] MEDS ORDERED: INSULIN GLARGINE UD 100 UNITS/ML SYR SUBCUT NR (20:00)
== END 2019-06-06 23:01 | DRG 48 ==
LOC: ER 17:02 → 5WST 22:43 → EDBEDREQTM 22:46 → EDBEDREQSVC 22:46 → EDBEDREQ 22:46 → ENRESERV 23:19
PROVIDERS: ADMIT Internal Medicine; ATTEND Internal Medicine
DX: E11.43 Type 2 diabetes mellitus with diabetic autonomic (poly)neuropathy (principal); K85.90 Acute pancreatitis without necrosis or infection, unspecified; J18.9 Pneumonia, unspecified organism; E87.2 Acidosis; E11.65 Type 2 diabetes mellitus with hyperglycemia; K86.1 Other chronic pancreatitis; I69.354 Hemiplegia and hemiparesis following cerebral infarction affecting left non-dominant side; E86.0 Dehydration; F17.200 Nicotine dependence, unspecified, uncomplicated; D50.9 Iron deficiency anemia, unspecified; K52.9 Noninfective gastroenteritis and colitis, unspecified; K31.84 Gastroparesis; I10 Essential (primary) hypertension; R31.9 Hematuria, unspecified; K57.90 Diverticulosis of intestine, part unspecified, without perforation or abscess without bleeding; E87.6 Hypokalemia; Z79.4 Long term (current) use of insulin; Z88.0 Allergy status to penicillin; Z87.11 Personal history of peptic ulcer disease; Z83.3 Family history of diabetes mellitus
CPT/HCPCS: 36415; 71045; 74176; 76700; 80048; 80061; 80305; 81003; 82150; 82962; 83036; 83605; 83735; 84100; 84145; 84439; 84443; 84484; 85027; 86705; 86709; 86803; 87340; 93005; 96361; 96374; 96375; 96376; 97162; 99291; J0360; J1650; J1815; J1956; J2270; J2405; J2765; J2920; J3475; J3490; J7030; J7042; J7620; A4315

== ENCOUNTER 2019-12-24 08:51 | Emergency (ER) | payer MEDICAID ==
[~2019-12-24] VITALS: Ht 160 cm; Wt 67.0 kg
[~2019-12-24 08:51] MED LIST changes: +ALBU90AE INH; +BLOO-1465 MT; +DILT30TA38 MT; +FAMO-135 MT; -GABA800T97 MT; +HYDR-459 MT; -INSULIN 70/30 SQ; +LANC1COM2 MC; -LISI-604 PO; -LISI10TA5 PO; +METO5TAB86 MT; +ONDA4TAB5 MT; +P20 MT; +PROT40 MT; -[UNRECOGNIZED DRUG - OTHER] PO
[2019-12-24 10:40] LABS: CHLORIDE 105 mEq/L (98-107)
[2019-12-24 10:42] LABS: BASOPHILS % 0.6 % (0.0-2.0); EOSINOPHILS % 1.3 % (0.0-5.0); HEMATOCRIT. 29.7 % (36.0-48.0); HEMOGLOBIN. 9.9 g/dL (12.0-16.0); LYMPHOCYTES % 38.4 % (20.0-50.0); MEAN CORPUSCULAR HEMOGLOBIN 26.1 pg (28.0-32.0); MEAN CORPUSCULAR VOLUME 78.3 fL (81.0-99.0); MEAN PLATELET VOLUME 8.2 fl (7.4-10.4); MONOCYTES % 9.6 % (2.0-8.0); NEUTROPHILS % 50.1 % (40.0-76.0); PLATELET 276 x1000/uL (130-400); RED BLOOD CELL COUNT 3.79 mill/uL (4.2-5.4); RED CELL DISTRIBUTION WIDTH 14.2 % (11.6-14.6)
[2019-12-24 10:46] LABS: PROTHROMBIN TIME 10.3 sec (9.6-11.0)
[2019-12-24] MEDS ORDERED: ENOXAPARIN 40MG/0.4ML SYR SUBCUT SCH (12:30)
[2019-12-24] MEDS ORDERED: GUAIFENESIN/DM 600MG/30MG ER TAB 12HR PO SCH (12:30)
[2019-12-24] MEDS ORDERED: GUAIFENESIN 200MG/10ML SUGAR FREE UDC PO PRN (12:30)
[2019-12-24] MEDS ORDERED: ACETAMINOPHEN 325MG TABLET PO PRN ×2 (12:30)
[2019-12-24] MEDS ORDERED: ONDANSETRON HCL 4MG/2ML INJ IV PRN (12:30)
[2019-12-24] MEDS ORDERED: DOCUSATE SODIUM 100MG CAPSULE PO PRN (12:30)
[2019-12-24] MEDS ORDERED: DEXTROSE 50% WATER 50ML SYRINGE IV PRN (12:30)
[2019-12-24] MEDS ORDERED: TRAMADOL 50MG TABLET PO PRN (12:30)
[2019-12-24] MEDS ORDERED: ZOLPIDEM TARTRATE 5MG TABLET PO PRN (12:30)
[2019-12-24] MEDS ORDERED: MAGNESIUM/ALUMINUM HYDROXIDE/SIMETHICONE 30ML UDC PO PRN (12:30)
[2019-12-24] MEDS ORDERED: NITROGLYCERIN 0.4MG TABLET SL SL PRN (12:30)
[2019-12-24] MEDS ORDERED: CLONIDINE 0.1MG TABLET PO PRN (12:30)
[2019-12-24] MEDS ORDERED: IPRATROPIUM/ALBUTEROL 0.5-3(2.5)MG/3ML NEB ORI PRN (12:30)
[2019-12-24] MEDS ORDERED: FAMOTIDINE 20MG TABLET PO SCH ×2 (13:00→21:00)
[2019-12-24] MEDS: BLOOD SUGAR DIAGNOSTIC STRIP TEST SCH ×2 (13:00→17:00)
[2019-12-24] MEDS ORDERED: ENOXAPARIN 30MG/0.3ML SYR SUBCUT SCH (13:00)
[2019-12-24] MEDS ORDERED: INSULIN LISPRO 100 UNITS/ML SUBCUT SCH (13:20)
[2019-12-24] MEDS ORDERED: SODIUM POLYSTYRENE SULFONATE 15 G/60 ML BOT PO NR (13:30)
[2019-12-24] MEDS ORDERED: GABAPENTIN 300MG CAPSULE PO SCH (14:00)
[2019-12-24] MEDS ORDERED: HYDRALAZINE HCL 50MG TABLET PO SCH (14:00)
[2019-12-24 17:30] LABS: *COCAINE SCREEN URINE NEGATIVE (NEGATIVE); METHADONE URINE SCREEN NEGATIVE (NEGATIVE); OPIATES URINE SCREEN NEGATIVE (NEGATIVE)
[2019-12-24 17:31] LABS: *AMPHETAMINES SCREEN URINE NEGATIVE (NEGATIVE); *BARBITURATES SCREEN URINE NEGATIVE (NEGATIVE); *BENZODIAZEPINES SCREEN URINE NEGATIVE (NEGATIVE); CANNABINOID URINE SCREEN NEGATIVE (NEGATIVE); PHENCYCLIDINE URINE SCREEN NEGATIVE (NEGATIVE)
[2019-12-24] MEDS ORDERED: DILTIAZEM HCL 60MG TABLET PO SCH (18:00)
[2019-12-24 20:47] VITALS: BP 125/69
[2019-12-24] MEDS ORDERED: LISINOPRIL 20MG TABLET PO SCH (21:00)
[2019-12-24] MEDS ORDERED: ASCORBIC ACID 500 MG TABLET PO SCH (21:00)
[2019-12-25] MEDS ORDERED: ZINC SULFATE 220 MG ( 50 ) CAPSULE PO SCH (09:00)
== END 2019-12-24 20:49 | disposition left against medical advice (07) ==
LOC: ER 08:51 → EDBEDREQTM 16:59 → EDBEDREQ 16:59 → CANRESERV 19:04 → ENRESERV 19:04 → ER 20:49 → CANBEDREQ 23:44
DX: I82.401 Acute embolism and thrombosis of unspecified deep veins of right lower extremity (principal); I73.9 Peripheral vascular disease, unspecified; E87.5 Hyperkalemia; N17.9 Acute kidney failure, unspecified; I10 Essential (primary) hypertension; E11.65 Type 2 diabetes mellitus with hyperglycemia; E44.0 Moderate protein-calorie malnutrition; D63.8 Anemia in other chronic diseases classified elsewhere; E78.00 Pure hypercholesterolemia, unspecified; F19.10 Other psychoactive substance abuse, uncomplicated; Z79.899 Other long term (current) drug therapy; Z88.0 Allergy status to penicillin; Z88.8 Allergy status to other drugs, medicaments and biological substances; Z86.73 Personal history of transient ischemic attack (TIA), and cerebral infarction without residual deficits
CPT/HCPCS: 36415; 71045; 80053; 80061; 80305; 82962; 83036; 85025; 85610; 86850; 86900; 86901; 87040; 93005; 93970; 96372; 99285; J1650

== ENCOUNTER 2019-12-31 21:03 | Inpatient (IN) | payer MEDICAID ==
[~2019-12-31] VITALS: Ht 167.6 cm; Wt 70.3 kg
[2019-12-31] MEDS ORDERED: SODIUM CHLORIDE 0.9% 1,000 ML IV ONE (22:24)
[2019-12-31] MEDS ORDERED: ONDANSETRON HCL 4MG/2ML INJ IV STA (22:24)
[2019-12-31] MEDS ORDERED: KETOROLAC 30MG/ML VIAL IV STA (22:24)
[2019-12-31 23:30] LABS: BASOPHILS % 1.2 % (0.0-2.0); EOSINOPHILS % 0.9 % (0.0-5.0); HEMATOCRIT. 30.9 % (36.0-48.0); HEMOGLOBIN. 10.4 g/dL (12.0-16.0); LYMPHOCYTES % 43.2 % (20.0-50.0); MEAN CORPUSCULAR HEMOGLOBIN 26.6 pg (28.0-32.0); MEAN CORPUSCULAR VOLUME 78.9 fL (81.0-99.0); MEAN PLATELET VOLUME 8.1 fl (7.4-10.4); MONOCYTES % 6.7 % (2.0-8.0); PLATELET 326 x1000/uL (130-400); RED BLOOD CELL COUNT 3.91 mill/uL (4.2-5.4); RED CELL DISTRIBUTION WIDTH 14.2 % (11.6-14.6)
[2019-12-31 23:31] LABS: CHLORIDE 101 mEq/L (98-107)
[2019-12-31 23:35] LABS: ETHANOL BLOOD < 10 mg/dL
[2019-12-31 23:38] LABS: PROTHROMBIN TIME 10.6 sec (9.6-11.0)
[2019-12-31 23:40] LABS: BETA HYDROXYBUTYRATE 0.1 mMol/L (0.0-0.3)
[2019-12-31] MEDS ORDERED: INSULIN REGULAR (HUMULIN R) 300UNITS/3ML IV ONE (23:45)
[2019-12-31] MEDS ORDERED: DEXTROSE 50% WATER 50ML SYRINGE IV ONE (23:45)
[2019-12-31] MEDS ORDERED: SODIUM BICARBONATE 8.4% 1 MEQ/ML 50ML SYR IV ONE (23:45)
[2019-12-31] MEDS ORDERED: CALCIUM CHLORIDE 1GM/10ML SYR IV ONE (23:45)
[2019-12-31] MEDS ORDERED: ALBUTEROL (0.083%) 2.5MG/3ML NEB HHN ONE (23:45)
[2019-12-31] MEDS ORDERED: MORPHINE SULFATE 4 MG/ML CPJ (NOT FOR IM USE) IV ONE (23:45)
[2020-01-01 01:05] LABS: CLARITY URINE CLEAR (CLEAR); COLOR URINE YELLOW (YELLOW); KETONES URINE NEGATIVE (NEGATIVE); LEUKOCYTE ESTERASE URINE NEGATIVE (NEGATIVE); NITRITE URINE NEGATIVE (NEGATIVE); OCCULT BLOOD URINE NEGATIVE (NEGATIVE); PROTEIN URINE 2+ (NEGATIVE); SPECIFIC GRAVITY URINE 1.015 (1.005-1.030); UROBILINOGEN URINE 0.2 E.U./dL (0.2-1.0)
[2020-01-01 01:32] LABS: *AMPHETAMINES SCREEN URINE NEGATIVE (NEGATIVE); *BARBITURATES SCREEN URINE NEGATIVE (NEGATIVE); *BENZODIAZEPINES SCREEN URINE NEGATIVE (NEGATIVE)
[2020-01-01 01:33] LABS: *COCAINE SCREEN URINE NEGATIVE (NEGATIVE); CANNABINOID URINE SCREEN NEGATIVE (NEGATIVE); METHADONE URINE SCREEN NEGATIVE (NEGATIVE); OPIATES URINE SCREEN PRESUMTIVE POSITIVE (NEGATIVE); PHENCYCLIDINE URINE SCREEN NEGATIVE (NEGATIVE)
[2020-01-01] MEDS ORDERED: DEXTROSE 50% WATER 50ML SYRINGE IV PRN (03:45)
[2020-01-01] MEDS ORDERED: SODIUM CHLORIDE 0.9% 1,000 ML IV ONE (03:45)
[2020-01-01] MEDS: MORPHINE SULFATE 2 MG/ML CPJ (NOT FOR IM USE) IV PRN ×2 (04:53→09:48)
[2020-01-01] MEDS: INSULIN LISPRO (MEDIUM DOSE) 100 UNITS/ML SUBCUT SCH ×4 (08:32→22:09)
[2020-01-01 09:00] VITALS: BP 132/59
[2020-01-01] MEDS: BLOOD SUGAR DIAGNOSTIC STRIP TEST SCH ×4 (09:00→21:00)
[2020-01-01] MEDS: HYDROCODONE/ACETAMINOPHEN 10/325MG TABLET PO PRN ×2 (11:40→18:22)
[2020-01-01 12:11] VITALS: BP 141/81
[2020-01-01] MEDS ORDERED: LORAZEPAM 2MG/ML CPJ IV PRN (15:00)
[2020-01-01 16:08] VITALS: BP 138/75
[2020-01-01] MEDS: FOLIC ACID 1 MG, THIAMINE HCL 100 MG, MVI, ADULT NO.1 10 ML in DEXTROSE 5% WATER 1,000 ML IV SCH ×4 (17:00)
[2020-01-01] MEDS: METOCLOPRAMIDE HCL 10MG TABLET PO SCH (18:22)
[2020-01-01] MEDS: SUCRALFATE 1 G/10 ML UDC PO SCH ×2 (18:22→22:07)
[2020-01-01] MEDS: PANTOPRAZOLE 40MG DR TABLET PO SCH (18:23)
[2020-01-01 20:53] VITALS: BP 124/62
[2020-01-02] MEDS: METOCLOPRAMIDE HCL 10MG TABLET PO SCH ×4 (00:05→18:20)
[2020-01-02] MEDS: HYDROCODONE/ACETAMINOPHEN 10/325MG TABLET PO PRN ×3 (00:07→20:49)
[2020-01-02 00:34] VITALS: BP 136/65
[2020-01-02 04:00] VITALS: BP 137/73
[2020-01-02 06:51] LABS: BASOPHILS % 0.3 % (0.0-2.0); EOSINOPHILS % 1.5 % (0.0-5.0); HEMATOCRIT. 26.6 % (36.0-48.0); MEAN CORPUSCULAR HEMOGLOBIN 26.7 pg (28.0-32.0); MEAN CORPUSCULAR VOLUME 78.7 fL (81.0-99.0); MEAN PLATELET VOLUME 8.3 fl (7.4-10.4); MONOCYTES % 7.9 % (2.0-8.0); NEUTROPHILS % 53.3 % (40.0-76.0); PLATELET 297 x1000/uL (130-400); RED BLOOD CELL COUNT 3.39 mill/uL (4.2-5.4); RED CELL DISTRIBUTION WIDTH 14.1 % (11.6-14.6)
[2020-01-02] MEDS: SUCRALFATE 1 G/10 ML UDC PO SCH ×7 (07:18→20:36)
[2020-01-02] MEDS: PANTOPRAZOLE 40MG DR TABLET PO SCH (07:20)
[2020-01-02] MEDS: INSULIN LISPRO (MEDIUM DOSE) 100 UNITS/ML SUBCUT SCH ×4 (07:30→21:06)
[2020-01-02] MEDS: BLOOD SUGAR DIAGNOSTIC STRIP TEST SCH ×4 (07:30→20:36)
[2020-01-02] MEDS ORDERED: LIDOCAINE HCL 1% 20ML VIAL (Pyxis) INJ ONE (08:28)
[2020-01-02 09:50] VITALS: BP 148/88
[2020-01-02] MEDS: MORPHINE SULFATE 2 MG/ML CPJ (NOT FOR IM USE) IV PRN ×2 (11:49→16:13)
[2020-01-02 16:00] VITALS: BP 151/81
[2020-01-02] MEDS: FOLIC ACID 1 MG, THIAMINE HCL 100 MG, MVI, ADULT NO.1 10 ML in DEXTROSE 5% WATER 1,000 ML IV SCH ×4 (17:38)
[2020-01-02 20:00] VITALS: BP 135/78
[2020-01-03] VITALS (7 sets, daily range): BP systolic 110–179; BP diastolic 62–104
[2020-01-03] MEDS: METOCLOPRAMIDE HCL 10MG TABLET PO SCH ×5 (01:30→23:43)
[2020-01-03] MEDS: MORPHINE SULFATE 2 MG/ML CPJ (NOT FOR IM USE) IV PRN ×2 (06:00→13:23)
[2020-01-03] MEDS: BLOOD SUGAR DIAGNOSTIC STRIP TEST SCH ×4 (06:27→21:00)
[2020-01-03] MEDS: PANTOPRAZOLE 40MG DR TABLET PO SCH (06:27)
[2020-01-03] MEDS: SUCRALFATE 1 G/10 ML UDC PO SCH ×4 (06:27→21:51)
[2020-01-03 06:55] LABS: BASOPHILS % 0.6 % (0.0-2.0); EOSINOPHILS % 2.2 % (0.0-5.0); HEMATOCRIT. 27.8 % (36.0-48.0); HEMOGLOBIN. 9.3 g/dL (12.0-16.0); LYMPHOCYTES % 51.8 % (20.0-50.0); MEAN CORPUSCULAR HEMOGLOBIN 26.2 pg (28.0-32.0); MEAN CORPUSCULAR VOLUME 78.6 fL (81.0-99.0); MONOCYTES % 7.3 % (2.0-8.0); NEUTROPHILS % 38.1 % (40.0-76.0); RED BLOOD CELL COUNT 3.54 mill/uL (4.2-5.4); RED CELL DISTRIBUTION WIDTH 14.3 % (11.6-14.6)
[2020-01-03] MEDS: INSULIN LISPRO (MEDIUM DOSE) 100 UNITS/ML SUBCUT SCH ×4 (07:50→21:00)
[2020-01-03] MEDS ORDERED: HYDRALAZINE 20MG/ML VIAL IV PRN (10:45)
[2020-01-03] MEDS: HYDROCODONE/ACETAMINOPHEN 10/325MG TABLET PO PRN ×2 (11:14→17:53)
[2020-01-03 11:17] LABS: PLATELET 242 x1000/uL (130-400)
[2020-01-03] MEDS ORDERED: FENTANYL CITRATE/PF 50MCG/ML 2ML VIAL ONE ×2 (11:27→12:21)
[2020-01-03] MEDS ORDERED: MIDAZOLAM HCL 2 MG/2 ML VIAL ONE (11:27)
[2020-01-03] MEDS ORDERED: IODIXANOL 320MG/ML 100 ML BOTTLE IV ONE (11:28)
[2020-01-03] MEDS ORDERED: LIDOCAINE HCL 1% 20ML VIAL (Pyxis) INJ ONE (11:28)
[2020-01-03] MEDS ORDERED: HEPARIN SODIUM 1,000 UNIT/1ML VIAL IV ONE (12:02)
[2020-01-03] MEDS ORDERED: IOHEXOL-300 100 ML BOTTLE ONE (12:03)
[2020-01-03] MEDS ORDERED: HYDRALAZINE 20MG/ML VIAL ONE (12:15)
[2020-01-03] MEDS: LOSARTAN POTASSIUM 50 MG TABLET PO SCH (12:58)
[2020-01-03] MEDS ORDERED: ONDANSETRON HCL 4MG/2ML INJ IV PRN (17:45)
[2020-01-03] MEDS: AMLODIPINE 5MG TABLET PO SCH (21:51)
[2020-01-04] MEDS: HYDROCODONE/ACETAMINOPHEN 10/325MG TABLET PO PRN ×2 (02:22→09:15)
[2020-01-04 04:00] VITALS: BP 131/64
[2020-01-04] MEDS: METOCLOPRAMIDE HCL 10MG TABLET PO SCH ×2 (05:25→12:50)
[2020-01-04 05:41] LABS: BASOPHILS % 0.7 % (0.0-2.0); EOSINOPHILS % 1.2 % (0.0-5.0); HEMATOCRIT. 27.6 % (36.0-48.0); HEMOGLOBIN. 9.2 g/dL (12.0-16.0); LYMPHOCYTES % 33.1 % (20.0-50.0); MEAN CORPUSCULAR HEMOGLOBIN 26.2 pg (28.0-32.0); MEAN CORPUSCULAR VOLUME 79.1 fL (81.0-99.0); MONOCYTES % 7.4 % (2.0-8.0); NEUTROPHILS % 57.6 % (40.0-76.0); PLATELET 275 x1000/uL (130-400); RED BLOOD CELL COUNT 3.49 mill/uL (4.2-5.4); RED CELL DISTRIBUTION WIDTH 14.1 % (11.6-14.6)
[2020-01-04] MEDS: PANTOPRAZOLE 40MG DR TABLET PO SCH (06:17)
[2020-01-04] MEDS: BLOOD SUGAR DIAGNOSTIC STRIP TEST SCH ×2 (06:17→12:17)
[2020-01-04] MEDS: SUCRALFATE 1 G/10 ML UDC PO SCH ×2 (06:17→12:50)
[2020-01-04] MEDS: INSULIN LISPRO (MEDIUM DOSE) 100 UNITS/ML SUBCUT SCH ×2 (07:45→12:53)
[2020-01-04 08:00] VITALS: BP 129/69
[2020-01-04 08:09] VITALS: BP 129/69
[2020-01-04] MEDS: LOSARTAN POTASSIUM 50 MG TABLET PO SCH (09:05)
[2020-01-04] MEDS: AMLODIPINE 5MG TABLET PO SCH (09:05)
[2020-01-04 12:08] VITALS: BP 140/72
[2020-01-04 12:58] VITALS: BP 140/72
== END 2020-01-04 14:25 | disposition home or self-care (01) | DRG 181 ==
LOC: ER 21:03 → 6WST 01-01 01:50 → ENRESERV 01-01 08:03
PROVIDERS: ADMIT Internal Medicine Nephrology; ATTEND Internal Medicine Nephrology
PROC: 02HV33Z Insertion of Infusion Device into Superior Vena Cava, Percutaneous Approach (ICD-10-PCS; 2020-01-02)
PROC: B518ZZA Fluoroscopy of Superior Vena Cava, Guidance (ICD-10-PCS; 2020-01-02)
PROC: B548ZZA Ultrasonography of Superior Vena Cava, Guidance (ICD-10-PCS; 2020-01-02)
PROC: 047M341 Dilation of Right Popliteal Artery with Drug-eluting Intraluminal Device, using Drug-Coated Balloon, Percutaneous Approach (ICD-10-PCS; principal; 2020-01-03)
PROC: B41F1ZZ Fluoroscopy of Right Lower Extremity Arteries using Low Osmolar Contrast (ICD-10-PCS; 2020-01-03)
PROC: 047T341 Dilation of Right Peroneal Artery with Drug-eluting Intraluminal Device, using Drug-Coated Balloon, Percutaneous Approach (ICD-10-PCS; 2020-01-03)
PROC: B41G1ZZ Fluoroscopy of Left Lower Extremity Arteries using Low Osmolar Contrast (ICD-10-PCS; 2020-01-03)
DX: E11.52 Type 2 diabetes mellitus with diabetic peripheral angiopathy with gangrene (principal); K85.90 Acute pancreatitis without necrosis or infection, unspecified; N17.0 Acute kidney failure with tubular necrosis; K31.84 Gastroparesis; E11.43 Type 2 diabetes mellitus with diabetic autonomic (poly)neuropathy; E44.1 Mild protein-calorie malnutrition; E11.65 Type 2 diabetes mellitus with hyperglycemia; D50.9 Iron deficiency anemia, unspecified; K86.1 Other chronic pancreatitis; E78.5 Hyperlipidemia, unspecified; E87.1 Hypo-osmolality and hyponatremia; F10.10 Alcohol abuse, uncomplicated; K29.80 Duodenitis without bleeding; K80.20 Calculus of gallbladder without cholecystitis without obstruction; K29.70 Gastritis, unspecified, without bleeding; E87.5 Hyperkalemia; F17.210 Nicotine dependence, cigarettes, uncomplicated; Y90.9 Presence of alcohol in blood, level not specified; I96 Gangrene, not elsewhere classified; I10 Essential (primary) hypertension; Z88.0 Allergy status to penicillin; Z88.8 Allergy status to other drugs, medicaments and biological substances; Z79.84 Long term (current) use of oral hypoglycemic drugs; Z91.19 Patient's noncompliance with other medical treatment and regimen; Z87.11 Personal history of peptic ulcer disease
CPT/HCPCS: 36415; 36573; 37224; 37228; 71045; 74176; 75710; 76700; 76937; 80048; 80053; 80305; 80320; 81003; 82010; 82962; 83605; 83880; 84145; 84484; 85025; 85347; 93005; 94640; 99285; C1725; C1760; C1769; C1887; C1893; C1894; J0360; J1644; J1815; J1885; J2060; J2250; J2270; J2405; J3010; J3411; J3490; J7030; J7070; J8597; Q9967; G0480

== ENCOUNTER 2020-02-16 21:54 | Inpatient (IN) | payer MEDICAID ==
[~2020-02-16] VITALS: Ht 160 cm; Wt 67.1 kg
[~2020-02-16 21:54] MED LIST changes: -METF-815 PO; -P20 MT
[2020-02-16] MEDS ORDERED: ONDANSETRON HCL 4MG/2ML INJ IV STA (21:59)
[2020-02-16] MEDS ORDERED: SODIUM CHLORIDE 0.9% 1,000 ML IV ONE ×2 (21:59→22:00)
[2020-02-16 23:55] LABS: BASOPHILS % 1.2 % (0.0-2.0); EOSINOPHILS % 1.1 % (0.0-5.0); HEMATOCRIT. 28.8 % (36.0-48.0); HEMOGLOBIN. 9.7 g/dL (12.0-16.0); LYMPHOCYTES % 48.7 % (20.0-50.0); MEAN CORPUSCULAR HEMOGLOBIN 26.4 pg (28.0-32.0); MEAN CORPUSCULAR VOLUME 78.6 fL (81.0-99.0); MEAN PLATELET VOLUME 8.3 fl (7.4-10.4); MONOCYTES % 7.2 % (2.0-8.0); NEUTROPHILS % 41.8 % (40.0-76.0); PLATELET 308 x1000/uL (130-400); RED BLOOD CELL COUNT 3.67 mill/uL (4.2-5.4); RED CELL DISTRIBUTION WIDTH 14.7 % (11.6-14.6)
[2020-02-16 23:59] LABS: CHLORIDE 104 mEq/L (98-107)
[2020-02-17] MEDS ORDERED: ACETAMINOPHEN 500MG TABLET PO NR (00:30)
[2020-02-17] MEDS ORDERED: GABAPENTIN 300MG CAPSULE PO ONE (01:30)
[2020-02-17] MEDS ORDERED: KETOROLAC 30MG/ML VIAL IV ONE (06:00)
[2020-02-17] MEDS ORDERED: ACETAMINOPHEN 325MG TABLET PO PRN (12:00)
[2020-02-17] MEDS ORDERED: ONDANSETRON HCL 4MG/2ML INJ IV PRN (12:00)
[2020-02-17] MEDS ORDERED: DEXTROSE 50% WATER 50ML SYRINGE IV PRN (12:00)
[2020-02-17] MEDS: BLOOD SUGAR DIAGNOSTIC STRIP TEST SCH ×3 (12:20→21:15)
[2020-02-17] MEDS: AMLODIPINE 10MG TABLET PO SCH (13:07)
[2020-02-17] MEDS: INSULIN LISPRO 100 UNITS/ML SUBCUT SCH ×3 (14:01→21:18)
[2020-02-17 15:49] VITALS: BP 147/89
[2020-02-17 16:00] VITALS: BP 136/60
[2020-02-17] MEDS: TRAMADOL 50MG TABLET PO PRN (17:38)
[2020-02-17] MEDS ORDERED: GABA800T97 MT (18:34)
[2020-02-17] MEDS ORDERED: LISI40TA4 MT (18:34)
[2020-02-17 18:52] LABS: TOTAL IRON BINDING CAPACITY 223 ug/dL (250-450)
[2020-02-17 20:00] VITALS: BP 156/85
[2020-02-17] MEDS: SODIUM CHLORIDE 0.9% 1,000 ML IV SCH (20:30)
[2020-02-18] VITALS (7 sets, daily range): BP systolic 121–172; BP diastolic 51–89
[2020-02-18] MEDS: INSULIN LISPRO 100 UNITS/ML SUBCUT SCH ×4 (07:33→21:43)
[2020-02-18] MEDS: BLOOD SUGAR DIAGNOSTIC STRIP TEST SCH ×4 (07:33→21:46)
[2020-02-18] MEDS: AMLODIPINE 10MG TABLET PO SCH (08:30)
[2020-02-18] MEDS: TRAMADOL 50MG TABLET PO PRN (08:30)
[2020-02-18] MEDS: SODIUM CHLORIDE 0.9% 1,000 ML IV SCH (13:06)
[2020-02-18] MEDS: GABAPENTIN 400MG CAPSULE PO SCH ×2 (15:11→22:23)
[2020-02-18] MEDS ORDERED: ZOLPIDEM TARTRATE 5MG TABLET PO PRN (18:30)
[2020-02-18] MEDS: HYDRALAZINE HCL 50MG TABLET PO SCH (21:40)
[2020-02-19] VITALS: BP 150/57
[2020-02-19 04:00] VITALS: BP 121/75
[2020-02-19] MEDS: BLOOD SUGAR DIAGNOSTIC STRIP TEST SCH ×2 (06:24→12:29)
[2020-02-19] MEDS: GABAPENTIN 400MG CAPSULE PO SCH (06:24)
[2020-02-19] MEDS: TRAMADOL 50MG TABLET PO PRN (07:52)
[2020-02-19 08:00] VITALS: BP 131/71
[2020-02-19] MEDS: INSULIN LISPRO 100 UNITS/ML SUBCUT SCH ×2 (08:21→12:30)
[2020-02-19] MEDS: AMLODIPINE 10MG TABLET PO SCH (09:15)
[2020-02-19] MEDS: HYDRALAZINE HCL 50MG TABLET PO SCH (09:16)
[2020-02-19 12:00] VITALS: BP 143/74
[2020-02-19] MEDS ORDERED: POLYVINYL ALCOHOL OPHTH DROPS 15ML RIGHTEYE SCH (12:00)
== END 2020-02-19 16:09 | disposition home health service (06) | DRG 48 ==
LOC: ER 21:54 → 6EST 02-17 08:15 → EDBEDREQ 02-17 08:44 → ENRESERV 02-17 10:58
PROVIDERS: ADMIT Internal Medicine; ATTEND Internal Medicine
DX: G90.8 Other disorders of autonomic nervous system (principal); N17.0 Acute kidney failure with tubular necrosis; I10 Essential (primary) hypertension; E86.0 Dehydration; D64.9 Anemia, unspecified; E11.51 Type 2 diabetes mellitus with diabetic peripheral angiopathy without gangrene; E11.65 Type 2 diabetes mellitus with hyperglycemia; E44.1 Mild protein-calorie malnutrition; E11.621 Type 2 diabetes mellitus with foot ulcer; L97.519 Non-pressure chronic ulcer of other part of right foot with unspecified severity; Z88.0 Allergy status to penicillin; Z87.891 Personal history of nicotine dependence; Z79.4 Long term (current) use of insulin; Z88.8 Allergy status to other drugs, medicaments and biological substances; Z79.899 Other long term (current) drug therapy; Z68.26 Body mass index [BMI] 26.0-26.9, adult; Z87.11 Personal history of peptic ulcer disease
CPT/HCPCS: 36415; 71045; 80053; 82728; 82962; 83540; 83550; 83880; 84484; 85025; 93005; 97116; 97162; 99285; J1815; J1885; J2405; J7030

== ENCOUNTER 2020-07-30 22:49 | Inpatient (IN) | payer MEDICAID ==
[~2020-07-30] VITALS: Ht 165.1 cm; Wt 34.0 kg
[~2020-07-30 22:49] MED LIST changes: +GABA800T97 MT; +LISI40TA4 MT
[2020-07-30] MEDS ORDERED: AZITHROMYCIN 500 MG in DEXT 5% WATER 250 ML IV SCH (23:15)
[2020-07-30] MEDS ORDERED: VANCOMYCIN 1 G PREMIX 200 ML IV SCH (23:15)
[2020-07-30] MEDS ORDERED: NITROGLYCERIN 50MG PREMIX 250 ML IV ONE (23:15)
[2020-07-30] MEDS ORDERED: MEROPENEM 1,000 MG in SODIUM CHLORIDE 0.9% 100 ML IV SCH (23:15)
[2020-07-30] MEDS ORDERED: NITROGLYCERIN 0.4MG TABLET SL SL ONE (23:15)
[2020-07-30] MEDS ORDERED: FUROSEMIDE 40MG/4ML VIAL IVP ONE (23:15)
[2020-07-30 23:45] LABS: BASOPHILS % 1.1 % (0.0-2.0); EOSINOPHILS % 1.5 % (0.0-5.0); HEMATOCRIT. 31.5 % (36.0-48.0); HEMOGLOBIN. 10.2 g/dL (12.0-16.0); LYMPHOCYTES % 44.5 % (20.0-50.0); MEAN CORPUSCULAR HEMOGLOBIN 26.6 pg (28.0-32.0); MEAN CORPUSCULAR VOLUME 81.6 fL (81.0-99.0); MEAN PLATELET VOLUME 8.6 fl (7.4-10.4); MONOCYTES % 7.8 % (2.0-8.0); NEUTROPHILS % 45.1 % (40.0-76.0); PLATELET 410 x1000/uL (130-400); RED BLOOD CELL COUNT 3.86 mill/uL (4.2-5.4); RED CELL DISTRIBUTION WIDTH 16.9 % (11.6-14.6)
[2020-07-30 23:52] LABS: CHLORIDE 109 mEq/L (98-107)
[2020-07-31] MEDS ORDERED: ZOLPIDEM TARTRATE 5MG TABLET PO PRN (05:00)
[2020-07-31] MEDS ORDERED: ONDANSETRON HCL 4MG/2ML INJ IV PRN (09:15)
[2020-07-31] MEDS ORDERED: AZITHROMYCIN 500 MG in DEXT 5% WATER 250 ML IV SCH (09:15)
[2020-07-31] MEDS ORDERED: DIPHENHYDRAMINE 50MG/ML VIAL IV PRN (09:15)
[2020-07-31] MEDS: FUROSEMIDE 40MG/4ML VIAL IV SCH ×2 (09:51→17:08)
[2020-07-31] MEDS: AMLODIPINE 5MG TABLET PO SCH ×2 (10:53→20:55)
[2020-07-31] MEDS: ASPIRIN 81MG EC TABLET PO SCH (10:53)
[2020-07-31 14:50] VITALS: BP 196/88
[2020-07-31 14:54] VITALS: BP 196/88
[2020-07-31] MEDS: CLONIDINE 0.1MG TABLET PO PRN (15:58)
[2020-07-31] MEDS: LOSARTAN POTASSIUM 25 MG TABLET PO SCH (15:58)
[2020-07-31] MEDS: ACETAMINOPHEN 325MG TABLET PO PRN ×4 (16:01→17:12)
[2020-07-31 16:42] VITALS: BP 197/104
[2020-07-31 18:00] VITALS: BP 175/93
[2020-07-31 20:00] VITALS: BP 169/89
[2020-07-31] MEDS: AZITHROMYCIN 500MG in DEXTROSE 5% WATER 250ML IV SCH (20:54)
[2020-07-31] MEDS: ATORVASTATIN CALCIUM 20MG TABLET PO SCH (20:54)
[2020-07-31] MEDS: HYDROCODONE/ACETAMINOPHEN 5/325MG TABLET PO PRN (21:49)
[2020-07-31] MEDS ORDERED: AZITHROMYCIN 500MG in DEXTROSE 5% WATER 250ML IV SCH (23:00)
[2020-07-31] MEDS ORDERED: DEXTROSE 50% WATER 50ML SYRINGE IV PRN (23:45)
[2020-08-01] VITALS: BP 145/98
[2020-08-01] MEDS: CEFTRIAXONE 1,000 MG in DEXTROSE 5% WATER 50 ML IV SCH ×2 (02:44→20:28)
[2020-08-01] MEDS: HYDROCODONE/ACETAMINOPHEN 5/325MG TABLET PO PRN ×4 (02:44→20:28)
[2020-08-01 03:40] VITALS: BP 122/56
[2020-08-01] MEDS: FUROSEMIDE 40MG/4ML VIAL IV SCH ×2 (06:17→17:05)
[2020-08-01] MEDS: BLOOD SUGAR DIAGNOSTIC STRIP TEST SCH ×4 (06:36→20:00)
[2020-08-01] MEDS: INSULIN LISPRO 100 UNITS/ML SUBCUT SCH ×4 (07:50→20:01)
[2020-08-01] MEDS: AMLODIPINE 5MG TABLET PO SCH ×2 (08:12→20:28)
[2020-08-01] MEDS: CLONIDINE 0.1MG TABLET PO PRN (08:12)
[2020-08-01] MEDS: ASPIRIN 81MG EC TABLET PO SCH (08:12)
[2020-08-01 08:20] VITALS: BP 177/89
[2020-08-01] MEDS: LOSARTAN POTASSIUM 25 MG TABLET PO SCH ×2 (08:22→17:05)
[2020-08-01 08:54] LABS: BASOPHILS % 0.6 % (0.0-2.0); EOSINOPHILS % 3.9 % (0.0-5.0); HEMATOCRIT. 27.4 % (36.0-48.0); HEMOGLOBIN. 9.1 g/dL (12.0-16.0); LYMPHOCYTES % 44.7 % (20.0-50.0); MEAN CORPUSCULAR HEMOGLOBIN 26.7 pg (28.0-32.0); MEAN CORPUSCULAR VOLUME 80.1 fL (81.0-99.0); MEAN PLATELET VOLUME 8.3 fl (7.4-10.4); MONOCYTES % 8.3 % (2.0-8.0); NEUTROPHILS % 42.5 % (40.0-76.0); PLATELET 379 x1000/uL (130-400); RED BLOOD CELL COUNT 3.42 mill/uL (4.2-5.4); RED CELL DISTRIBUTION WIDTH 16.5 % (11.6-14.6)
[2020-08-01 09:20] LABS: CHLORIDE 104 mEq/L (98-107)
[2020-08-01 09:46] LABS: LDL CHOLESTEROL 142 mg/dL (5-100)
[2020-08-01 09:50] LABS: HDL CHOLESTEROL 57 mg/dL (40-59)
[2020-08-01] MEDS ORDERED: BENZONATATE 100MG CAPSULE PO PRN (12:15)
[2020-08-01 12:52] VITALS: BP 146/65
[2020-08-01] MEDS ORDERED: IPRATROPIUM/ALBUTEROL 0.5-3(2.5)MG/3ML NEB HHN PRN (13:30)
[2020-08-01 16:00] VITALS: BP 153/83
[2020-08-01] MEDS: VANCOMYCIN 500 MG PREMIX 100 ML IV SCH (16:26)
[2020-08-01 20:00] VITALS: BP 167/82
[2020-08-01] MEDS: IPRATROPIUM/ALBUTEROL 0.5-3(2.5)MG/3ML NEB HHN SCH (20:19)
[2020-08-01] MEDS: GUAIFENESIN 600MG ER TABLET PO SCH (20:27)
[2020-08-01] MEDS: ATORVASTATIN CALCIUM 20MG TABLET PO SCH (20:27)
[2020-08-01] MEDS: AZITHROMYCIN 500MG in DEXTROSE 5% WATER 250ML IV SCH (21:28)
[2020-08-02] MEDS: IPRATROPIUM/ALBUTEROL 0.5-3(2.5)MG/3ML NEB HHN SCH (01:54)
[2020-08-02] MEDS: HYDROCODONE/ACETAMINOPHEN 5/325MG TABLET PO PRN ×3 (03:33→20:01)
[2020-08-02] MEDS: INSULIN LISPRO 100 UNITS/ML SUBCUT SCH ×4 (06:54→20:01)
[2020-08-02] MEDS: BLOOD SUGAR DIAGNOSTIC STRIP TEST SCH ×4 (06:54→20:01)
[2020-08-02 08:00] VITALS: BP 143/76
[2020-08-02] MEDS: LOSARTAN POTASSIUM 25 MG TABLET PO SCH ×2 (09:02→17:00)
[2020-08-02] MEDS: GUAIFENESIN 600MG ER TABLET PO SCH ×2 (09:03→20:00)
[2020-08-02] MEDS: FUROSEMIDE 40MG/4ML VIAL IV SCH ×2 (09:03→17:15)
[2020-08-02] MEDS: ASPIRIN 81MG EC TABLET PO SCH (09:03)
[2020-08-02] MEDS: AMLODIPINE 5MG TABLET PO SCH ×2 (09:03→20:01)
[2020-08-02] MEDS: VANCOMYCIN 500 MG PREMIX 100 ML IV SCH (09:07)
[2020-08-02] MEDS: ACETAMINOPHEN 325MG TABLET PO PRN (10:13)
[2020-08-02 14:14] VITALS: BP 158/82
[2020-08-02] MEDS: CEFTRIAXONE 1,000 MG in DEXTROSE 5% WATER 50 ML IV SCH (19:35)
[2020-08-02 20:00] VITALS: BP 108/68
[2020-08-02] MEDS: ATORVASTATIN CALCIUM 20MG TABLET PO SCH (20:00)
[2020-08-02 20:01] VITALS: BP 108/82
[2020-08-02] MEDS: AZITHROMYCIN 500MG in DEXTROSE 5% WATER 250ML IV SCH (20:01)
[2020-08-02] MEDS ORDERED: HYDRALAZINE HCL 10MG TABLET PO SCH (21:00)
== END 2020-08-02 20:55 | disposition home or self-care (01) | DRG 720 ==
LOC: ER 22:49 → MICUSO 23:46 → 5WST 07-31 14:42 → 7WST 07-31 14:47 → 6WST 08-01 02:05
PROVIDERS: ADMIT Internal Medicine; ATTEND Internal Medicine
PROC: 5A09357 Assistance with Respiratory Ventilation, Less than 24 Consecutive Hours, Continuous Positive Airway Pressure (ICD-10-PCS; principal; 2020-07-30)
DX: A41.9 Sepsis, unspecified organism (principal); I11.0 Hypertensive heart disease with heart failure; E78.5 Hyperlipidemia, unspecified; I27.20 Pulmonary hypertension, unspecified; E11.40 Type 2 diabetes mellitus with diabetic neuropathy, unspecified; I34.0 Nonrheumatic mitral (valve) insufficiency; J96.01 Acute respiratory failure with hypoxia; Z20.822 Contact with and (suspected) exposure to COVID-19; R65.20 Severe sepsis without septic shock; E11.51 Type 2 diabetes mellitus with diabetic peripheral angiopathy without gangrene; I42.0 Dilated cardiomyopathy; J44.1 Chronic obstructive pulmonary disease with (acute) exacerbation; I21.4 Non-ST elevation (NSTEMI) myocardial infarction; I50.23 Acute on chronic systolic (congestive) heart failure; F17.200 Nicotine dependence, unspecified, uncomplicated; Z89.512 Acquired absence of left leg below knee; Z89.511 Acquired absence of right leg below knee; Z88.5 Allergy status to narcotic agent; Z88.0 Allergy status to penicillin; Z79.899 Other long term (current) drug therapy; Z87.01 Personal history of pneumonia (recurrent); J18.9 Pneumonia, unspecified organism
CPT/HCPCS: 36415; 71045; 80053; 80061; 82728; 82962; 83605; 83615; 83880; 84145; 84443; 84484; 85025; 85379; 86141; 93005; 93306; 94640; 94660; 99285; C1893; J0456; J0696; J1200; J1940; J2185; J3370; J3490; J7050; J7060; U0003